=== PATIENT | female | born 1970 | race Caucasian/White ===

== ENCOUNTER 2016-06-06 11:09 | Emergency (ER) | payer OTHER ==
[~2016-06-06] VITALS: Ht 170.2 cm; Wt 54.7 kg
[~2016-06-06 11:09] MED LIST: BACLOFEN20 MG PO; GABAPENTIN300 MG PO; OXYMORPHONE HCL15 MG PO; VALIUM10 MG PO
[2016-06-06] MEDS ORDERED: KLONOPIN0.5 M1 PO (11:50)
[2016-06-06 12:25] VITALS: BP 153/98
== END 2016-06-06 12:27 | disposition home or self-care (01) ==
LOC: EME 11:09
DX: F41.1 Generalized anxiety disorder (principal); F17.200 Nicotine dependence, unspecified, uncomplicated
CPT/HCPCS: 99281; 99283